=== PATIENT | male | born 1980 | race Hispanic/Latino ===

== ENCOUNTER 2020-01-23 21:15 | Emergency (ER) | payer SELFPAY ==
--- NOTE | 2020-01-23 23:12 | EDPHYS ---
Physician Documentation [facility] Name: Jerald Leiva Age: 39 yrs Sex: Male : 1980 Arrival Date: 01/23/2020 Time: 21:17 Bed 24 Private MD: ED Physician Cleveland Curry HPI: 01/22 21:45 This 39 yrs old Male presents to ER via Ambulatory with complaints of Flu cp Symptoms. 21:45 Onset: The symptoms/episode began/occurred yesterday. Associated signs and symptoms: cp Pertinent positives: fever, sore throat, chills, body aches, slight cough, Pertinent negatives: chest pain, diarrhea, vomiting. Severity of symptoms: in the emergency department the symptoms are unchanged despite home interventions. Historical: - Allergies: 21:22 No Known Allergies; aj1 - Home Meds: 21:22 None [Active]; aj1 - PMHx: 21:22 None; aj1 - PSHx: 21:22 None; aj1 - Immunization history:: Flu vaccine is not up to date. - Social history:: Smoking status: Patient/guardian denies using tobacco. ROS: 22:00 Constitutional: Positive for body aches, chills, Negative for fever, poor PO intake. cp 22:00 Eyes: Negative for injury, pain, redness, and discharge. cp 22:00 ENT: Positive for sore throat, Negative for drainage from ear(s), ear pain, sinus pain, difficulty swallowing, difficulty handling secretions, hoarseness. 22:00 Neck: Negative for stiffness. 22:00 Cardiovascular: Negative for chest pain. 22:00 Respiratory: Negative for shortness of breath, wheezing. 22:00 Abdomen/GI: Negative for abdominal pain, nausea, vomiting, and diarrhea. 22:00 Skin: Negative for rash. 22:00 Neuro: Negative for altered mental status, headache, weakness. 22:00 All other systems are negative. Exam: 22:05 Constitutional: The patient appears in no acute distress, alert, awake, cp non-diaphoretic, non-toxic, well developed, well nourished. 22:05 Head/Face: Normocephalic, atraumatic. cp 22:05 Eyes: Periorbital structures: appear normal, Conjunctiva: normal, no exudate, no injection, Lids and lashes: appear normal, bilaterally. 22:05 ENT: External ear(s): are unremarkable, Ear canal(s): are normal, clear, TM's: bulging, is not appreciated, bilaterally, dullness, bilaterally, erythema, is not appreciated, bilaterally, Nose: is normal, Mouth: Lips: moist, Oral mucosa: moist, Posterior pharynx: Airway: no evidence of obstruction, patent, Tonsils: no enlargement, no exudate, swelling, is not appreciated, erythema, that is mild, exudate, is not appreciated. 22:05 Neck: ROM/movement: Meningeal signs: are not present, nuchal rigidity, is not appreciated, Lymph nodes: no appreciated lymphadenopathy. 22:05 Chest/axilla: Inspection: normal, Palpation: is normal, no crepitus, no tenderness. 22:05 Cardiovascular: Rate: normal, Rhythm: regular. 22:05 Respiratory: the patient does not display signs of respiratory distress, Respirations: normal, no use of accessory muscles, no retractions, no splinting, no tachypnea, labored breathing, is not present, Breath sounds: decreased breath sounds, are not appreciated, stridor, is not appreciated, wheezing: is not appreciated. 22:05 Abdomen/GI: Inspection: abdomen appears normal, Palpation: abdomen is soft and non-tender, in all quadrants. 22:05 Skin: no rash present. Vital Signs: 21:19 BP 128 / 81; Pulse 98; Resp 18; Temp 99.6(O); Pulse Ox 100% on R/A; Weight 63.05 kg aj1 (R); Height 5 ft. 7 in. (170.18 cm) (R); Pain 0/10; 21:19 Body Mass Index 21.77 (63.05 kg, 170.18 cm) aj1 MDM: 21:23 Patient medically screened. [facility] 23:00 Differential diagnosis: bronchitis, flu, URI, strep throat. cp 23:11 Data reviewed: vital signs, nurses notes, lab test result(s), and as a result, I will cp discharge patient. 23:11 Antibiotic administration: Not indicated, the patient has a suspected viral illness. cp Counseling: I had a detailed discussion with the patient and/or guardian regarding: the historical points, exam findings, and any diagnostic results supporting the discharge/admit diagnosis, lab results, to return to the emergency department if symptoms worsen or persist or if there are any questions or concerns that arise at home. 01/22 21:35 Order name: Influenza Screen (a \T\ B); Complete Time: 23:08 cp 01/22 23:08 Interpretation: Reviewed. cp 01/22 21:35 Order name: Strep; Complete Time: 23:08 cp 01/22 23:09 Interpretation: Reviewed. cp Administered Medications: No medications were administered Disposition: 01/23 07:33 Co-signature as Attending Physician, Cleveland Curry MD I agree with the assessment and [facility] plan of care. Disposition: 01/23/20 23:12 Discharged to Home. Impression: Influenza due to unidentified influenza virus. - Condition is Stable. - Discharge Instructions: Influenza, Adult. - Prescriptions for Ibuprofen 800 mg Oral Tablet - take 1 tablet by ORAL route every 8 hours As needed take with food; 30 tablet. Tessalon Perles 100 mg Oral Capsule - take 2 capsule by ORAL route every 8 hours As needed; 20 capsule. Tamiflu 75 mg Oral Capsule - take 1 tablet by ORAL route every 12 hours for 5 days; 10 tablet. - Medication Reconciliation Form, Thank You Letter, Antibiotic Education, Prescription Opioid Use form. - Work release form (01/23/20 23:32). ls4 - Follow up: Private Physician; When: 2 - 3 days; Reason: Worsening of condition. - Problem is new. - Symptoms are unchanged. Signatures: Dispatcher [employer] EDAmina Mariee RN RN aj1 Cleveland Curry MD MD cha Page, Corey, PA PA cp Stewart, Lisa, RN RN ls4 Corrections: (The following items were deleted from the chart) 01/22 23:28 23:12 01/23/2020 23:12 Discharged to Home. Impression: Influenza due to unidentified ls4 influenza virus. Condition is Stable. Forms are Medication Reconciliation Form, Thank You Letter, Antibiotic Education, Prescription Opioid Use. Follow up: Private Physician; When: 2 - 3 days; Reason: Worsening of condition. Problem is new. Symptoms are unchanged. cp
--- NOTE | 2020-01-23 23:12 | ER ---
Nurse's Notes [facility] Name: Jerald Leiva Age: 39 yrs Sex: Male : 1980 Arrival Date: 01/23/2020 Time: 21:17 Bed 24 Private MD: Diagnosis: Influenza due to unidentified influenza virus Presentation: 01/22 21:19 Chief complaint: Patient states: Sore throat, chills, body aches since yesterday. aj1 Coronavirus screen: The patient has NOT traveled to a country currently being monitored by the CDC within the last 14 days. Ebola Screen: Patient denies travel to an Ebola-affected area in the 21 days before illness onset. Initial Sepsis Screen: Does the patient meet any 2 criteria? HR > 90 bpm. No. Patient's initial sepsis screen is negative. Does the patient have a suspected source of infection? Yes: Other: fever, body aches. Risk Assessment: Do you want to hurt yourself or someone else? Patient reports no desire to harm self or others. 21:19 Method Of Arrival: Ambulatory aj 21:19 Acuity: ISABEL 4 aj1 Triage Assessment: 21:22 General: Appears in no apparent distress. comfortable, Behavior is calm, cooperative, aj1 appropriate for age. Pain: Denies pain. EENT: Reports sore throat. Neuro: Level of Consciousness is awake, alert, obeys commands, Oriented to person, place, time, situation. Cardiovascular: Patient's skin is warm and dry. Respiratory: Airway is patent Respiratory effort is even, unlabored, Respiratory pattern is regular, symmetrical. Historical: - Allergies: 21:22 No Known Allergies; aj1 - Home Meds: 21:22 None [Active]; aj1 - PMHx: 21:22 None; aj1 - PSHx: 21:22 None; aj1 - Immunization history:: Flu vaccine is not up to date. - Social history:: Smoking status: Patient/guardian denies using tobacco. Screenin:37 Abuse screen: Denies threats or abuse. Denies injuries from another. Nutritional ls4 screening: No deficits noted. Tuberculosis screening: No symptoms or risk factors identified. Fall Risk None identified. Vital Signs: 21:19 BP 128 / 81; Pulse 98; Resp 18; Temp 99.6(O); Pulse Ox 100% on R/A; Weight 63.05 kg [facility] (R); Height 5 ft. 7 in. (170.18 cm) (R); Pain 0/10; 21:19 Body Mass Index 21.77 (63.05 kg, 170.18 cm) [facility] ED Course: 21:17 Patient arrived in ED. jg7 21:22 Triage completed. 1 21:22 Arm band placed on Patient placed in an exam room. 1 21:22 Patient has correct armband on for positive identification. Bed in low position. Call ls4 light in reach. Side rails up X 1. 21:22 front desk monitor on. Pulse ox on. NIBP on. ls4 21:25 Cleveland Ramirez PA is PHCP. cp 21:25 Cleveland Curry MD is Attending Physician. cp 21:41 Georgiana Hook, RN is Primary Nurse. ls4 Administered Medications: No medications were administered Outcome: 23:12 Discharge ordered by MD. cp 23:28 Patient left the ED. ls4 Signatures: Amina Hall, RN RN [facility] Cleveland Ramirez PA PA cp Georgiana Hook, RN RN ls4 Theresa Hall [facility]
[2020-01-23 23:32] VITALS: BP 128/81; TEMP 99.6; O2SAT 100
== END 2020-01-23 23:28 | disposition home or self-care (01) ==
LOC: ER 21:15
DX: J11.89 Influenza due to unidentified influenza virus with other manifestations (principal)
CPT/HCPCS: 87070; 87081; 87804; 99284

== ENCOUNTER 2020-01-28 08:45 | Emergency (ER) | payer SELFPAY ==
--- NOTE | 2020-01-28 09:56 | EDPHYS ---
Physician Documentation [facility] Name: Jerald Leiva Age: 39 yrs Sex: Male : 1980 Arrival Date: 01/28/2020 Time: 08:47 Bed 14 Private MD: ED Physician Kris Kellogg HPI: 01/27 09:07 This 39 yrs old Male presents to ER via Unassigned with complaints of Cough, rn Sore Throat, Runny Nose. 09:07 The patient or guardian reports cough, sore throat. Onset: The symptoms/episode rn began/occurred 6 day(s) ago. Severity of symptoms: At their worst the symptoms were mild, in the emergency department the symptoms are unchanged. Modifying factors: The symptoms are alleviated by nothing, the symptoms are aggravated by nothing. The patient has experienced similar episodes in the past. Reports seen here 5 days ago, told had viral infection, reports cough is better but still has sore throat. Now daughter with similar symptoms. . Historical: - Allergies: 09:13 No Known Allergies; iw - Home Meds: 09:13 None [Active]; iw - PMHx: 09:13 None; iw - PSHx: 09:13 None; iw - Immunization history:: Adult Immunizations not up to date. - Social history:: Smoking status: Patient denies any tobacco usage or history of. - Family history:: not pertinent. - Hospitalizations: : No recent hospitalization is reported. ROS: 09:07 Constitutional: Negative for fever, chills, and weight loss, Eyes: Negative for injury, rn pain, redness, and discharge, ENT: + cough and sore throat Neck: Negative for injury, pain, and swelling, Cardiovascular: Negative for chest pain, palpitations, and edema, Respiratory: Negative for shortness of breath, wheezing, and pleuritic chest pain, Abdomen/GI: Negative for abdominal pain, nausea, vomiting, diarrhea, and constipation, MS/Extremity: Negative for injury and deformity, Skin: Negative for injury, rash, and discoloration, Neuro: Negative for headache, weakness, numbness, tingling, and seizure. Exam: 09:07 Constitutional: This is a well developed, well nourished patient who is awake, alert, rn and in no acute distress. Ambulatory to room without distress, drinking coffee Head/Face: Normocephalic, atraumatic. ENT: mild pharyngeal erythema without exudate or stridor Neck: Trachea midline, no thyromegaly or masses palpated, and no cervical lymphadenopathy. Supple, full range of motion without nuchal rigidity, or vertebral point tenderness. No Meningismus. Respiratory: Speaking full sentences. No increased work of breathing, no retractions or nasal flaring. Vital Signs: 09:11 BP 124 / 72; Pulse 66; Resp 16 S; Temp 98.0; Pulse Ox 99% on R/A; Weight 62.6 kg; iw Height 5 ft. 6 in. (167.64 cm); 09:11 Body Mass Index 22.27 (62.60 kg, 167.64 cm) iw MDM: 08:54 Patient medically screened. rn 09:54 Differential Diagnosis: Influenza Upper Respiratory Infection Viral Syndrome. Data rn reviewed: vital signs, nurses notes, lab test result(s), and as a result, I will discharge patient. Counseling: I had a detailed discussion with the patient and/or guardian regarding: the historical points, exam findings, and any diagnostic results supporting the discharge/admit diagnosis, lab results, the need for outpatient follow up, to return to the emergency department if symptoms worsen or persist or if there are any questions or concerns that arise at home. Special discussion: I discussed with the patient/guardian in detail that at this point there is no indication for admission to the hospital. It is understood, however, that if the symptoms persist or worsen the patient needs to return immediately for re-evaluation. 01/27 09:07 Order name: Flu; Complete Time: 09:52 rn Administered Medications: No medications were administered Disposition: 01/28/20 09:55 Discharged to Home. Impression: Acute upper respiratory infection, unspecified. - Condition is Stable. - Discharge Instructions: Upper Respiratory Infection, Adult, Viral Respiratory Infection. - Medication Reconciliation Form, Thank You Letter, Antibiotic Education, Prescription Opioid Use form. - Follow up: Private Physician; When: As needed; Reason: Recheck today's complaints, Re-evaluation by your physician. - Problem is an ongoing problem. - Symptoms have improved. Signatures: Dispatcher [employer] Jarrett Knowles RN RN em Williams, Irene, RN RN iw Kris Kellogg MD MD overnight houseperson: (The following items were deleted from the chart) 10:27 09:55 01/28/2020 09:55 Discharged to Home. Impression: Acute upper respiratory em infection, unspecified. Condition is Stable. Forms are Medication Reconciliation Form, Thank You Letter, Antibiotic Education, Prescription Opioid Use. Follow up: Private Physician; When: As needed; Reason: Recheck today's complaints, Re-evaluation by your physician. Problem is an ongoing problem. Symptoms have improved. rn
--- NOTE | 2020-01-28 09:56 | ER ---
Nurse's Notes [facility] Name: Jerald Leiva Age: 39 yrs Sex: Male : 1980 Arrival Date: 01/28/2020 Time: 08:47 Bed 14 Private MD: Diagnosis: Acute upper respiratory infection, unspecified Presentation: 01/27 09:11 Chief complaint: Patient states: was seen here on Tuesday and had flu/strep swab iw negative , still isn't better. Coronavirus screen: The patient has NOT traveled to a country currently being monitored by the [facility] within the last 14 days. Proceed with normal triage procedures. The patient has NOT had contact with any known and/or suspected case of coronavirus. Proceed with normal triage procedures. Ebola Screen: Patient negative for fever greater than or equal to 101.5 degrees Fahrenheit, and additional compatible Ebola Virus Disease symptoms Patient denies exposure to infectious person. Patient denies travel to an Ebola-affected area in the 21 days before illness onset. No symptoms or risks identified at this time. Initial Sepsis Screen: Does the patient meet any 2 criteria? No. Patient's initial sepsis screen is negative. Does the patient have a suspected source of infection? No. Patient's initial sepsis screen is negative. Risk Assessment: Do you want to hurt yourself or someone else? Patient reports no desire to harm self or others. 09:11 Method Of Arrival: Ambulatory iw 09:11 Acuity: ISABEL 4 iw Historical: - Allergies: 09:13 No Known Allergies; iw - Home Meds: 09:13 None [Active]; iw - PMHx: 09:13 None; iw - PSHx: 09:13 None; iw - Immunization history:: Adult Immunizations not up to date. - Social history:: Smoking status: Patient denies any tobacco usage or history of. - Family history:: not pertinent. - Hospitalizations: : No recent hospitalization is reported. Screenin:14 Abuse screen: Denies threats or abuse. Nutritional screening: No deficits noted. em Tuberculosis screening: No symptoms or risk factors identified. Fall Risk None identified. Assessment: 09:20 General: Appears in no apparent distress. comfortable, Behavior is calm, cooperative, em Reports feeling ill for > 3 days, Denies fever. Pain: Denies pain. Neuro: Level of Consciousness is awake, alert, obeys commands, Oriented to person, place, time, situation, Appropriate for age. Cardiovascular: Capillary refill < 3 seconds Patient's skin is warm and dry. Respiratory: Reports cough that is non-productive, Airway is patent Respiratory effort is even, unlabored, Respiratory pattern is regular, symmetrical, Breath sounds are clear bilaterally. Onset: The symptoms/episode began/occurred 6 days ago, Denies shortness of breath. GI: Patient currently denies nausea, vomiting. EENT: Nares are clear Oral mucosa is moist. Throat is clear is pink. Derm: Skin is intact, is healthy with good turgor, Skin is pink, warm \T\ dry. Musculoskeletal: Capillary refill < 3 seconds, Range of motion: intact in all extremities. Vital Signs: 09:11 BP 124 / 72; Pulse 66; Resp 16 S; Temp 98.0; Pulse Ox 99% on R/A; Weight 62.6 kg; iw Height 5 ft. 6 in. (167.64 cm); 09:11 Body Mass Index 22.27 (62.60 kg, 167.64 cm) ED Course: 08:47 Patient arrived in ED. ag5 08:54 Kris Kellogg MD is Attending Physician. rn 09:05 Jarrett Painter RN is Primary Nurse. em 09:13 Triage completed. iw 09:14 Arm band placed on. iw 09:14 Patient has correct armband on for positive identification. em 10:24 No provider procedures requiring assistance completed. Patient did not have IV access em during this emergency room visit. Administered Medications: No medications were administered Outcome: 09:55 Discharge ordered by . rn 10:24 Discharged to home ambulatory, with family. em 10:24 Condition: good 10:24 Discharge instructions given to patient, Instructed on discharge instructions, follow up and referral plans. Demonstrated understanding of instructions, follow-up care. 10:27 Patient left the ED. em Signatures: Jarrett Painter RN RN em Williams, Irene, RN RN Kris Kellogg MD MD rn Gaskin, Ajare ag5
[2020-01-28 10:31] VITALS: BP 124/72; TEMP 98; O2SAT 99
== END 2020-01-28 10:27 | disposition home or self-care (01) ==
LOC: ER 08:45
DX: J06.9 Acute upper respiratory infection, unspecified (principal)
CPT/HCPCS: 87804; 99281

== ENCOUNTER 2021-06-28 13:48 | Emergency (ER) | payer SELFPAY ==
[2021-06-28] MEDS ORDERED: ACETAMINOPHEN 500 MG TAB ONE (14:49)
[2021-06-28] MEDS ORDERED: ONDANSETRON 4 MG (ODT) TAB ONE (14:52)
[2021-06-28 15:51] LABS: SARS-COV-2 RT PCR POSITIVE (NEGATIVE)
--- NOTE | 2021-06-28 16:10 | RAD REPORT ---
EXAM DESCRIPTION: RAD - Chest Single View - 06/28/2021 3:40 pm CLINICAL HISTORY: SOB COMPARISON: No comparisons FINDINGS: No evidence of edema or pneumonia. The heart size is within normal limits.No acute osseous abnormality. No significant pleural effusions or pneumothorax. IMPRESSION: No acute cardiopulmonary disease.
--- NOTE | 2021-06-28 17:13 | ER ---
Nurse's Notes [facility] Name: Jerald Leiva Age: 41 yrs Sex: Male : 1980 Arrival Date: 06/28/2021 Time: 13:50 Bed 3 Private MD: Diagnosis: Coronavirus infection, unspecified Presentation: 06/28 14:21 Chief complaint: Patient states: MARIN, sore throat, body aches and fever that began ss Tuesday. Coronavirus screen: cough unrelated to allergies, muscle pain, Client presents with at least one sign or symptom that may indicate coronavirus-19. Standard/surgical mask placed on the client. Provider contacted for isolation considerations. Ebola Screen: Patient denies exposure to infectious person. Patient denies travel to an Ebola-affected area in the 21 days before illness onset. Initial Sepsis Screen: Does the patient meet any 2 criteria? No. Patient's initial sepsis screen is negative. Does the patient have a suspected source of infection? No. Patient's initial sepsis screen is negative. Risk Assessment: Do you want to hurt yourself or someone else? Patient reports no desire to harm self or others. Note Pt's is at home with COVID. Onset of symptoms was June 26, 2021. 14:21 Method Of Arrival: Ambulatory ss 14:21 Acuity: ISABEL 4 ss Historical: - Allergies: 14:23 No Known Allergies; ss - Home Meds: 14:23 None [Active]; ss - PMHx: 14:23 None; ss - PSHx: 14:23 None; ss - Immunization history:: Adult Immunizations up to date. - Social history:: Smoking status: Patient denies any tobacco usage or history of. Screenin:58 Abuse screen: Denies threats or abuse. Denies injuries from another. Nutritional hb screening: No deficits noted. Tuberculosis screening: No symptoms or risk factors identified. Fall Risk None identified. Assessment: 16:58 General: Appears in no apparent distress. Behavior is calm, cooperative. Pain: Pain hb currently is 3 out of 10 on a pain scale. Neuro: Level of Consciousness is awake, alert, obeys commands, Oriented to person, place, time, situation. Cardiovascular: Patient's skin is warm and dry. Respiratory: Respiratory effort is even, unlabored, Respiratory pattern is regular, symmetrical. GI: No signs and/or symptoms were reported involving the gastrointestinal system. : No signs and/or symptoms were reported regarding the genitourinary system. EENT: No signs and/or symptoms were reported regarding the EENT system. Derm: Skin is pink, warm \T\ dry. Musculoskeletal: Reports body aches, headache. 17:23 Reassessment: Patient appears in no apparent distress at this time. Patient and/or jd3 family updated on plan of care and expected duration. Pain level reassessed. Patient is alert, oriented x 3, equal unlabored respirations, skin warm/dry/pink. Patient states feeling better. Vital Signs: 14:21 BP 98 / 69; Pulse 96; Resp 20; Temp 101.3(TE); Pulse Ox 96% on R/A; Weight 63.05 kg; ss Height 5 ft. 7 in. (170.18 cm); Pain 9/10; 16:58 BP 113 / 67; Pulse 79; Resp 17; Temp 99(TE); Pulse Ox 97% on R/A; Pain 3/10; hb 14:21 Body Mass Index 21.77 (63.05 kg, 170.18 cm) ED Course: 13:50 Patient arrived in ED. ds1 14:23 Triage completed. ss 14:23 Arm band placed on right wrist. ss 14:29 Logan Rosas NP is PHCP. pm1 14:29 Ryan Mckeon MD is Attending Physician. pm1 15:40 Chest Single View XRAY In Process Unspecified. EDMS 16:57 Jyoti Martinez, DELISA is Primary Nurse. hb 16:58 Patient has correct armband on for positive identification. Bed in low position. Call light in reach. 17:07 COVID swab sent to lab. Flu and/or RSV swab sent to lab. Strep swab sent to lab. mh5 17:23 No provider procedures requiring assistance completed. Patient did not have IV access jd3 during this emergency room visit. Administered Medications: 14:31 Drug: Tylenol 1000 mg Route: PO; ss 15:30 Follow up: Response: No adverse reaction jd3 14:33 Drug: Zofran (Ondansetron) 4 mg Route: PO; ss 15:30 Follow up: Response: No adverse reaction jd3 Outcome: 17:12 Discharge ordered by . pm1 17:23 Discharged to home ambulatory, with family. jd3 17:23 Condition: stable 17:23 Discharge instructions given to patient, Instructed on discharge instructions, follow up and referral plans. medication usage, Demonstrated understanding of instructions, follow-up care, medications, Prescriptions given X 1. 17:24 Patient left the ED. jd3 Signatures: Dispatcher [employer] EDMT GaryKate ds1 Darshana Lovelace RN RN ss Logan Rosas, AUTOMOBILE CONTRACT CLERK [employer]OM[employer]BILE CONTRACT CLERK pm1 Jyoti Martinez RN RN hb Martinez, [facility] Osmin Mejia RN RN jd3
--- NOTE | 2021-06-28 17:13 | EDPHYS ---
Physician Documentation [facility] Name: Jerald Leiva Age: 41 yrs Sex: Male : 1980 Arrival Date: 06/28/2021 Time: 13:50 Bed 3 Private MD: ED Physician Ryan Mckeon HPI: 06/28 14:40 This 41 yrs old Male presents to ER via Ambulatory with complaints of Fever, pm1 Body Aches. 14:40 The patient reports fever, not measured (subjective). Onset: The symptoms/episode pm1 began/occurred 2 day(s) ago. Modifying factors: The patient has had contact with sick spouse, Covid positive. Associated signs and symptoms: Pertinent positives: decreased appetite, Occasional cough, shortness of breath, sore throat and body aches. Severity of symptoms: in the emergency department the symptoms are worse. The patient has not experienced similar symptoms in the past. The patient has not recently seen a physician. . Historical: - Allergies: 14:23 No Known Allergies; ss - Home Meds: 14:23 None [Active]; ss - PMHx: 14:23 None; ss - PSHx: 14:23 None; ss - Immunization history:: Adult Immunizations up to date. - Social history:: Smoking status: Patient denies any tobacco usage or history of. ROS: 14:40 Constitutional: Positive for body aches, fever, decreased PO intake. pm1 14:40 Back: Negative for injury and pain, MS/Extremity: Negative for injury and deformity, pm1 Skin: Negative for injury, rash, and discoloration, Neuro: Negative for headache, weakness, numbness, tingling, and seizure. 14:40 Neck: Negative for injury, pain, and swelling, Cardiovascular: Negative for chest pain, palpitations, and edema. 14:40 ENT: Positive for sore throat, Negative for Change in smell and taste. 14:40 Respiratory: Positive for cough, shortness of breath. 14:40 Abdomen/GI: Positive for nausea, vomiting, diarrhea, Negative for abdominal pain. 14:40 All other systems are negative. Exam: 14:40 Head/Face: Normocephalic, atraumatic. pm1 14:40 Back: No spinal tenderness. No costovertebral tenderness. Full range of motion. Skin: Warm, dry with normal turgor. Normal color with no rashes, no lesions, and no evidence of cellulitis. MS/ Extremity: Pulses equal, no cyanosis. Neurovascular intact. Full, normal range of motion. 14:40 Constitutional: The patient appears in no acute distress, alert, awake, comfortable, non-diaphoretic, non-toxic, well developed, well hydrated, well groomed, well nourished, febrile. 14:40 ENT: Posterior pharynx: Tonsils: bilaterally enlarged, with erythema, no exudate, no ulcerations, erythema, that is mild. 14:40 Cardiovascular: Exam negative for acute changes, Rate: normal, Rhythm: regular, Pulses: no pulse deficits are appreciated, Heart sounds: normal. 14:40 Respiratory: Exam negative for acute changes, respiratory distress, shortness of breath, Breath sounds: are clear throughout. 14:40 Abdomen/GI: Exam negative for acute changes, Inspection: abdomen appears normal, Palpation: abdomen is soft and non-tender, in all quadrants. 14:40 Neuro: Exam negative for acute changes, Orientation: is normal, Mentation: is normal, Motor: is normal, moves all fours. Vital Signs: 14:21 BP 98 / 69; Pulse 96; Resp 20; Temp 101.3(TE); Pulse Ox 96% on R/A; Weight 63.05 kg; ss Height 5 ft. 7 in. (170.18 cm); Pain 9/10; 16:58 BP 113 / 67; Pulse 79; Resp 17; Temp 99(TE); Pulse Ox 97% on R/A; Pain 3/10; hb 14:21 Body Mass Index 21.77 (63.05 kg, 170.18 cm) MDM: 14:44 Patient medically screened. pm1 15:07 Data reviewed: vital signs. Data interpreted: Pulse oximetry: on room air. pm1 16:57 Counseling: I had a detailed discussion with the patient and/or guardian regarding: the pm1 historical points, exam findings, and any diagnostic results supporting the discharge/admit diagnosis, lab results, radiology results. 06/28 14:24 Order name: Strep ss 06/28 14:29 Order name: Chest Single View XRAY; Complete Time: 16:50 pm1 06/28 15:18 Order name: Throat Culture EDMS 06/28 15:51 Order name: COVID-19/FLU A+B; Complete Time: 15:59 EDMS Administered Medications: 14:31 Drug: Tylenol 1000 mg Route: PO; ss 15:30 Follow up: Response: No adverse reaction jd3 14:33 Drug: Zofran (Ondansetron) 4 mg Route: PO; ss 15:30 Follow up: Response: No adverse reaction jd3 Disposition: 18:34 Co-signature as Attending Physician, Ryan Mckeon MD I agree with the assessment and tw4 plan of care. Disposition Summary: 06/28/21 17:12 Discharge Ordered Location: Home pm1 Problem: new pm1 Symptoms: have improved pm1 Condition: Stable pm1 Diagnosis - Coronavirus infection, unspecified pm1 Followup: pm1 - With: Emergency Department - When: As needed - Reason: Worsening of condition Followup: pm1 - With: Private Physician - When: 2 - 3 days - Reason: Recheck today's complaints, Continuance of care, Re-evaluation by your physician Discharge Instructions: - Discharge Summary Sheet pm1 - COVID-19 pm1 Forms: - Medication Reconciliation Form pm1 - Thank You Letter pm1 - Antibiotic Education pm1 - Prescription Opioid Use pm1 - Work release form jd3 Prescriptions: - ondansetron 4 mg Oral tablet,disintegrating - place 1 tablet by TRANSLINGUAL route every 8 hours As needed; 15 tablet; pm1 Refills: 0, Product Selection Permitted Signatures: Dispatcher [employer] EDMS Darshana Lovelace RN RN ss Logan Rosas, OUTSIDE DELIVERER OUTSIDE DELIVERER pm1 Ryan Mckeon MD MD tw4 Osmin Mejia RN jd3 Corrections: (The following items were deleted from the chart) 14:51 14:24 CORONAVIRUS+MR.LAB.BRZ ordered. EDMS EDMS 15:18 14:25 Influenza Screen (A \T\ B)+BA.LAB.BRZ ordered. EDMS EDMS
[2021-06-28 17:32] VITALS: BP 113/67; TEMP 99; O2SAT 97
== END 2021-06-28 17:24 | disposition home or self-care (01) ==
LOC: ER 13:48
DX: U07.1 COVID-19 (principal)
CPT/HCPCS: 0240U; 71045; 87070; 87081; 99284

== ENCOUNTER 2022-07-04 21:52 | Emergency (ER) | payer SELFPAY ==
[2022-07-04] MEDS ORDERED: ACETAMINOPHEN 500 MG TAB ONE (22:57)
[2022-07-04] MEDS ORDERED: ONDANSETRON 4 MG (ODT) TAB ONE (23:04)
--- NOTE | 2022-07-05 00:43 | EDPHYS ---
Physician Documentation [facility] Name: Jerald Leiva Age: 42 yrs Sex: Male : 1980 Arrival Date: 07/04/2022 Time: 21:57 Bed Waiting Private MD: JENNIFER Physician Cleveland Curry HPI: 07/05 00:28 This 42 yrs old Male presents to ER via Ambulatory with complaints of Vomiting.kb 00:28 The patient presents with sore throat. The patient describes throat pain as constant. kb Onset: The symptoms/episode began/occurred this morning. Severity of symptoms: At their worst the symptoms were moderate, in the emergency department the symptoms are unchanged. Modifying factors: The symptoms are alleviated by nothing, the symptoms are aggravated by swallowing, Patient's oral intake status: good. Associated signs and symptoms: Pertinent positives: chills, fever, headache, Sore throat vomiting. The patient has not experienced similar symptoms in the past. The patient has not recently seen a physician. Patient has been having chills, headache, sore throat, fever and vomiting that started this morning. Denies cough or congestion. Denies abdominal pain.. Historical: - Allergies: 07/04 22:43 No Known Allergies; bm7 - Home Meds: 22:43 None [Active]; bm7 - PSHx: 22:43 Unable to Obtain; bm7 - Immunization history:: Adult Immunizations up to date, Client reports having NOT received the Covid vaccine. - Social history:: Smoking status: Patient reports the use of cigarette tobacco products, denies chronic smoking, but will smoke occasionally. ROS: 07/05 00:27 Respiratory: Negative for shortness of breath, cough, wheezing, and pleuritic chest kb pain. Constitutional: Positive for chills, malaise. ENT: Positive for sore throat. Abdomen/GI: Positive for nausea and vomiting, Negative for abdominal pain. Neuro: Positive for headache. All other systems are negative. Exam: 00:27 Constitutional: This is a well developed, well nourished patient who is awake, alert, kb and in no acute distress. Head/Face: Normocephalic, atraumatic. ENT: Moist Mucous membranes Cardiovascular: Regular rate and rhythm with a normal S1 and S2. No gallops, murmurs, or rubs. No pulse deficits. Respiratory: Respirations even and unlabored. No increased work of breathing. Talking in full sentences Abdomen/GI: Soft, non-tender. No distention Skin: Warm, dry with normal turgor. Normal color. MS/ Extremity: Pulses equal, no cyanosis. Neurovascular intact. Full, normal range of motion. Neuro: Awake and alert, GCS 15, oriented to person, place, time, and situation. Moves all extremities. Normal gait. Psych: Awake, alert, with orientation to person, place and time. Behavior, mood, and affect are within normal limits. 00:27 ENT: Posterior pharynx: Airway: normal, no evidence of obstruction, swelling, that is mild, erythema, that is moderate. Vital Signs: 07/04 22:41 BP 122 / 76; Pulse 109; Resp 18; Temp 102.5(TE); Pulse Ox 100% on R/A; Weight 58.97 kg bm7 (R); Height 5 ft. 7 in. (170.18 cm); Pain 10/10; 07/05 00:40 BP 101 / 67; Pulse 91; Resp 18; Temp 100.3(O); Pulse Ox 98% ; vc1 07/04 22:41 Body Mass Index 20.36 (58.97 kg, 170.18 cm) bm7 MDM: 07/04 22:56 Patient medically screened. kb 07/05 00:28 Data reviewed: vital signs, nurses notes. Data interpreted: Pulse oximetry: on room air kb is 100 %. Interpretation: normal. Counseling: I had a detailed discussion with the patient and/or guardian regarding: the historical points, exam findings, and any diagnostic results supporting the discharge/admit diagnosis, lab results, the need for outpatient follow up, a family practitioner, to return to the emergency department if symptoms worsen or persist or if there are any questions or concerns that arise at home. 07/04 22:45 Order name: Flu; Complete Time: 00:03 7 07/04 22:47 Order name: COVID-19 SARS RT PCR (Document "Date of Onset" if Symptomatic); Complete kb Time: 00:09 07/04 22:50 Order name: Strep; Complete Time: 00:03 [facility] 07/04 23:47 Order name: Throat Culture EDMI 07/05 00:11 Order name: Vital Signs kb 07/05 00:23 Order name: PO challenge; Complete Time: 00:38 kb Administered Medications: 07/04 22:49 Drug: Tylenol 1000 mg Route: PO; bm7 22:56 Drug: Zofran (Ondansetron) 4 mg Route: PO; bm7 Disposition Summary: 07/05/22 00:42 Discharge Ordered Location: Home kb Condition: Stable kb Diagnosis - Acute pharyngitis, unspecified kb Followup: kb - With: Emergency Department - When: As needed - Reason: Worsening of condition Followup: kb - With: Private Physician - When: 2 - 3 days - Reason: Recheck today's complaints, Continuance of care, Re-evaluation by your physician Discharge Instructions: - Discharge Summary Sheet kb - Pharyngitis, [id number] kb Forms: - Medication Reconciliation Form kb - Thank You Letter kb - Antibiotic Education kb - Prescription Opioid Use kb Signatures: Dispatcher [employer] Lauren Coffey, NESHA PAZ-Ebony Skinner, RN RN bm7
--- NOTE | 2022-07-05 00:43 | ER ---
Nurse's Notes [facility] Name: Jerald Leiva Age: 42 yrs Sex: Male : 1980 Arrival Date: 07/04/2022 Time: 21:57 Bed Waiting Private MD: Diagnosis: Acute pharyngitis, unspecified Presentation: 07/04 22:42 Chief complaint: Patient states: I have been having chills, headache, sore throat, bm7 fever, and vomiting since this morning. I did a home covid test and it was negative. Coronavirus screen: Client presents with at least one sign or symptom that may indicate coronavirus-19. Standard/surgical mask placed on the client. Ebola Screen: No symptoms or risks identified at this time. Initial Sepsis Screen: Does the patient meet any 2 criteria? Temp <36.0*C (96.8*F)) or > 38.3*C (100.9*F). Does the patient have a suspected source of infection? No. Patient's initial sepsis screen is negative. Risk Assessment: Do you want to hurt yourself or someone else? Patient reports no desire to harm self or others. Onset of symptoms was July 04, 2022. Care prior to arrival: Medication(s) given: Motrin, \T\1500. 22:42 Method Of Arrival: Ambulatory [facility] 22:42 Acuity: ISABEL 3 bm7 Triage Assessment: 22:43 General: Appears in no apparent distress. uncomfortable, Behavior is anxious. Pain: bm7 Complains of pain in forehead Pain does not radiate. EENT: Reports difficulty swallowing due to sore throat. Neuro: No deficits noted. Cardiovascular: No deficits noted. Chest pain is denied. Respiratory: Denies cough, shortness of breath. GI: Reports nausea, vomiting, Patient currently denies diarrhea. : No deficits noted. No signs and/or symptoms were reported regarding the genitourinary system. Derm: No deficits noted. No signs and/or symptoms reported regarding the dermatologic system. Musculoskeletal: No deficits noted. No signs and/or symptoms reported regarding the musculoskeletal system. Historical: - Allergies: 22:43 No Known Allergies; bm7 - Home Meds: 22:43 None [Active]; bm7 - PSHx: 22:43 Unable to Obtain; bm7 - Immunization history:: Adult Immunizations up to date, Client reports having NOT received the Covid vaccine. - Social history:: Smoking status: Patient reports the use of cigarette tobacco products, denies chronic smoking, but will smoke occasionally. Screenin/22 00:47 Abuse screen: Denies threats or abuse. Nutritional screening: No deficits noted. vc1 Tuberculosis screening: No symptoms or risk factors identified. Fall Risk None identified. Assessment: 00:40 Reassessment: Patient and/or family updated on plan of care and expected duration. Pain vc1 level reassessed. Patient is alert, oriented x 3, equal unlabored respirations, skin warm/dry/pink. Patient states feeling better. Patient states symptoms have improved. Vital Signs: 07/04 22:41 BP 122 / 76; Pulse 109; Resp 18; Temp 102.5(TE); Pulse Ox 100% on R/A; Weight 58.97 kg bm7 (R); Height 5 ft. 7 in. (170.18 cm); Pain 10/10; 07/05 00:40 BP 101 / 67; Pulse 91; Resp 18; Temp 100.3(O); Pulse Ox 98% ; vc1 07/04 22:41 Body Mass Index 20.36 (58.97 kg, 170.18 cm) bm7 ED Course: 07/04 21:57 Patient arrived in ED. bp1 22:41 Arm band placed on right wrist. bm7 22:43 Triage completed. bm7 22:47 Lauren Dyson FNP-C is [facility]. kb 22:47 Cleveland Curry MD is Attending Physician. kb 22:50 COVID swab sent to lab. Flu and/or RSV swab sent to lab. Strep swab sent to lab. bm7 07/05 00:48 No provider procedures requiring assistance completed. Patient did not have IV access vc1 during this emergency room visit. Administered Medications: 07/04 22:49 Drug: Tylenol 1000 mg Route: PO; bm7 22:56 Drug: Zofran (Ondansetron) 4 mg Route: PO; bm7 Medication: 07/05 00:48 VIS not applicable for this client. vc1 Outcome: 00:42 Discharge ordered by . kb 00:48 Discharged to home ambulatory, with family. vc1 00:48 Condition: good 00:48 Discharge instructions given to patient, family, Instructed on discharge instructions, follow up and referral plans. Demonstrated understanding of instructions, follow-up care. 00:48 Patient left the ED. vc1 Signatures: Lauren Dyson FNP-C FNP-Ebony Hendrickson Brittany, RN RN bm7 Henrietta Childers RN RN vc1
[2022-07-05 04:17] VITALS: BP 101/67; TEMP 100.3; O2SAT 98
== END 2022-07-05 00:48 | disposition home or self-care (01) ==
LOC: ER 21:52
DX: J02.9 Acute pharyngitis, unspecified (principal); R11.2 Nausea with vomiting, unspecified; R51.9 Headache, unspecified; F17.210 Nicotine dependence, cigarettes, uncomplicated; Z20.822 Contact with and (suspected) exposure to COVID-19
CPT/HCPCS: 87070; 87081; 87804; 99283; Q0162; U0003

== ENCOUNTER 2024-09-12 23:54 | Emergency (ER) | payer OTHER ==
[2024-09-13] MEDS ORDERED: FENTANYL CITR 100 MCG/2 ML ONE (01:03)
[2024-09-13] MEDS ORDERED: ONDANSETRON 4 MG/2 ML VIAL ONE (01:03)
[2024-09-13] MEDS ORDERED: NA CHLORIDE 0.9% 1,000 ML ONE (01:04)
[2024-09-13] MEDS ORDERED: dexAMETHasone 10 MG/ML VIAL ONE (01:12)
[2024-09-13 01:47] LABS: Absolute Basophils 0.1 K/uL (0-0.5); Absolute Eosinophils 0.1 K/uL (0-0.5); Absolute Lymphocytes (CBC) 1.4 K/uL (0.7-4.9); Absolute Monocytes 1.1 K/uL (0.1-1.3); Absolute Neutrophil 7.8 K/uL (1.8-8.0); Basophils % 0.8 % (0-1.3); Eosinophils % 1.4 % (0-4.4); Hematocrit 43.7 % (39.6-49.0); Hemoglobin 14.7 g/dL (13.6-17.9); Lymphocytes % 13.7 % (15.3-44.8); MCH 29.9 pg (27.0-35.0); MCHC 33.7 g/dL (32.0-36.0); MCV 88.9 fL (80-100); MPV 9.3 fL (7.6-11.3); Monocytes % 10.4 % (3.3-12.3); Neutrophils % 73.7 % (41.7-73.7); Platelets 303 thou/uL (152-406); RBC Red Blood Cell Count 4.92 M/uL (4.33-5.43); Red Cell Distribution Width 13.5 % (12.1-15.2)
[2024-09-13 01:51] LABS: Anion Gap 9.7 mEq/L (5.0-15.0); Monoscreen NEG (NEG); Potassium 3.7 mEq/L (3.5-5.1)
--- NOTE | 2024-09-13 02:46 | RAD REPORT ---
EXAMINATION: CT NECK WITH IV CONTRAST INDICATION: Male, 44 years old, r/o bell captain COMPARISON(S): None. TECHNIQUE: CT acquisition of the neck following the administration of IV contrast. Coronal and sagitt al reformatted images provided. This exam was performed according to departmental dose-optimization program which includes automated exposure control, adjustment of the mA and/or kV according to patien t size, and/or use of iterative reconstruction technique. FINDINGS: Aerodigestive tract: Ovoid 1.3 cm right peritonsillar fluid collection. Associated soft tissue inflam mation results in partial effacement of the right oropharynx. Small bilateral tonsilloliths. Soft tissues: No retropharyngeal fluid. Superficial soft tissues are unremarkable. Salivary glands: Parotid and submandibular glands are normal. Oral cavity: Unremarkable. Sinuses/Mastoids: No significant disease. Lymph nodes: Enlarged, probably reactive right level 3 lymph node. Thyroid: Unremarkable. Vascular: Unremarkable. Orbits: Unremarkable. Brain: Imaged intracranial structures are unremarkable by neck technique. Bones: No acute findings. Upper chest: No acute findings. IMPRESSION: Right 1.3 cm peritonsillar abscess. Probably reactive right cervical lymph node. No retropharyngeal f luid. Electronically signed by: Dc Jennings MD 09/13/2024 02:01 AM CDT RP Due to temporary technical issues with the PACS/[employer] reporting system, reports are being gavino d by the in-house radiologist without review as a courtesy to ensure prompt reporting the interpreting radiologist is fully responsible for the content of the report. Transcribed Date/Time: 09/13/2024 2:46 AM
--- NOTE | 2024-09-13 03:35 | ER ---
Nurse's Notes [facility] Name: Jerald Rick Age: 44 yrs Sex: Male : 1980 Arrival Date: 09/12/2024 Time: 23:54 Bed 7 Private MD: Diagnosis: Peritonsillar abscess Presentation: 09/13 00:14 Chief complaint: Patient states: throat pain radiating to right ear X2 days. seen in kl clinic today. strep swab negative and DC 'd with RX for azithromycin. pain has not gotten any better. 10mg toradol taken 1hr PAVING RAMMER. Coronavirus screen: Client denies travel out of the [place] in the last 14 days. At this time, the client does not indicate any symptoms associated with coronavirus-19. Ebola Screen: No symptoms or risks identified at this time. Initial Sepsis Screen: Does the patient meet any 2 criteria? No. Patient's initial sepsis screen is negative. Does the patient have a suspected source of infection? No. Patient's initial sepsis screen is negative. Risk Assessment: Do you want to hurt yourself or someone else? Patient reports no desire to harm self or others. Onset of symptoms was September 12, 2024. 00:14 Method Of Arrival: Ambulatory kl 00:14 Acuity: ISABEL 4 kl Triage Assessment: 00:18 General: Appears in no apparent distress. uncomfortable, Behavior is calm, cooperative. kl Pain: Complains of pain in right ear and throat. EENT: Reports difficulty swallowing pain when swallowing. Neuro: No deficits noted. Gaspar Agitation-Sedation Scale (RASS): 0 - Alert and Calm Level of Consciousness is awake, alert, obeys commands, Oriented to person, place, time, situation. Cardiovascular: No deficits noted. Denies chest pain, shortness of breath, Capillary refill < 3 seconds Clubbing of nail beds is absent JVD is absent Patient's skin is warm and dry. Respiratory: No deficits noted. Airway is patent Respiratory effort is even, unlabored, Respiratory pattern is regular, symmetrical. GI: No deficits noted. No signs and/or symptoms were reported involving the gastrointestinal system. : No deficits noted. No signs and/or symptoms were reported regarding the genitourinary system. Derm: No deficits noted. No signs and/or symptoms reported regarding the dermatologic system. Skin is intact, is healthy with good turgor, Skin is dry, Skin is normal, Skin temperature is warm. Musculoskeletal: No deficits noted. No signs and/or symptoms reported regarding the musculoskeletal system. Circulation, motion, and sensation intact. Range of motion: intact in all extremities. Historical: - Allergies: 00:18 No Known Allergies; kl - Home Meds: 00:18 azithromycin 1 gram Oral Packet [Active]; ketorolac 10 mg Oral tablet [Active]; kl - PMHx: 00:18 None; kl - PSHx: 00:18 None; kl - Immunization history:: Adult Immunizations up to date. - Infectious Disease History:: Denies. - Social history:: Smoking status: Patient denies any tobacco usage or history of. Patient uses alcohol, occasionally. Patient/guardian denies using street drugs. Screenin:30 [facility] ED Fall Risk Assessment (Adult) History of falling in the last 3 months, mt4 including since admission No falls in past 3 months (0 pts) Confusion or Disorientation No (0 pts) Intoxicated or Sedated No (0 pts) Impaired Gait No (0 pts) Mobility Assist Device Used No (0 pt) Altered Elimination No (0 pt) Score/Fall Risk Level 0 - 2 = Low Risk. Abuse screen: Denies injuries from another. Nutritional screening: Difficulty chewing/swallowing? Yes. Tuberculosis screening: No symptoms or risk factors identified. Exposure risk/Travel Screening: None identified. Assessment: :30 General: Appears in no apparent distress. comfortable, well groomed, Behavior is calm, mt4 cooperative, appropriate for age. Pain: Complains of pain in neck Pain currently is 10 out of 10 on a pain scale. Quality of pain is described as aching, pressure, sharp, throbbing. Neuro: Level of Consciousness is awake, alert, obeys commands, Oriented to person, place, time, situation, Appropriate for age Banana Expert are equal bilaterally Moves all extremities. Gait is steady, Speech is normal, Facial symmetry appears normal. Cardiovascular: Capillary refill < 3 seconds. Respiratory: Airway is patent Respiratory effort is even, unlabored, Respiratory pattern is regular. GI: No signs and/or symptoms were reported involving the gastrointestinal system. GI: No signs and/or symptoms were reported involving the gastrointestinal system. : No signs and/or symptoms were reported regarding the genitourinary system. EENT: Reports pain in right ear, chin and right jaw. Derm: No signs and/or symptoms reported regarding the dermatologic system. Musculoskeletal: No signs and/or symptoms reported regarding the musculoskeletal system. 03:45 Reassessment: Patient appears in no apparent distress at this time. Patient and/or bm8 family updated on plan of care and expected duration. Pain level reassessed. Patient is alert, oriented x 3, equal unlabored respirations, skin warm/dry/pink. Patient states feeling better. Patient states symptoms have improved. 03:45 Reassessment: pt insturcted to attend 0900 am appt with ENT, pt given printed 8 directions, address and phone number. Vital Signs: 00:14 BP 127 / 93; Pulse 69; Resp 17; Temp 98.7(O); Pulse Ox 100% on R/A; Weight 64.41 kg kl (R); Height 5 ft. 8 in. (R); 01:30 BP 123 / 81; Pulse 78; Resp 16 S; Temp 98.7(O); Pulse Ox 99% on R/A; Pain 10/10; mt4 02:45 BP 107 / 74; Pulse 58; Resp 16 S; Pulse Ox 98% on R/A; mt4 03:45 BP 118 / 74; Pulse 58; Resp 17; Temp 98.7; Pulse Ox 97% ; Pain 2/10; bm8 00:14 Body Mass Index 21.59 (64.41 kg, 172.72 cm) kl 01:30 Pain Scale: Adult mt4 03:45 Pain Scale: Adult bm8 Rudolph Coma Score: 01:30 Eye Response: spontaneous(4). Motor Response: obeys commands(6). Verbal Response: mt4 oriented(5). Total: 15. 03:45 Eye Response: spontaneous(4). Motor Response: obeys commands(6). Verbal Response: bm8 oriented(5). Total: 15. ED Course: 09/12 23:58 Patient arrived in ED. [id number] 09/13 00:18 Triage completed. kl 00:18 Arm band placed on right wrist. kl 00:30 Lauren Dyson FNP-C is [facility]. kb 00:30 Reynaldo Baron MD is Attending Physician. kb 00:57 Preet Hewitt, DELISA is Primary Nurse. bm8 01:30 No apparent distress. Resting quietly. Awaiting lab results. mt4 01:30 Patient has correct armband on for positive identification. Bed in low position. Call mt4 light in reach. Side rails up X 1. Provided Education on: labs and meds . Client placed on continuous cardiac and pulse oximetry monitoring. NIBP monitoring applied. Pulse ox on. Door closed. Lights dimmed. Warm blanket given. Pillow given. Verbal reassurance given. Assisted to bathroom. 01:30 No provider procedures requiring assistance completed. Inserted saline lock: 20 gauge mt4 in right antecubital area, using aseptic technique. Blood collected. Flushed with 10 mL NS. Patient maintains SpO2 saturation greater than 95% on room air. 01:48 CT Soft Tissue Neck W/contr In Process Unspecified. EDMS 03:33 Blank Jason MD is Referral Physician. bo1 03:45 IV discontinued, intact, bleeding controlled, No redness/swelling at site. Pressure bm8 dressing applied. Administered Medications: 01:29 Drug: Ondansetron IVP 4 mg IVP once; over 2 minutes Route: IVP; Site: right antecubital;mt4 01:50 Follow up: Response: No adverse reaction mt4 01:29 Drug: NS 0.9% IV 1000 ml IV at 1000 ml once; to be given as a bolus over 60 minutes mt4 Route: IV; Rate: 1000 ml; Site: right antecubital; 01:50 Follow up: Response: No adverse reaction mt4 02:37 Follow up: IV Status: Infusion continued; IV Intake: 1000ml mt4 01:30 Drug: Decadron - Dexamethasone IVP 10 mg IVP once Route: IVP; Site: right antecubital; mt4 01:50 Follow up: Response: No adverse reaction mt4 01:30 Drug: fentaNYL (PF) IVP 25 mcg IVP once Route: IVP; Site: right antecubital; mt4 01:50 Follow up: Response: No adverse reaction mt4 Medication: 01:30 VIS not applicable for this client. mt4 Intake: 02:37 IV: 1000ml; Total: 1000ml. mt4 Outcome: 03:34 Discharge ordered by . bo1 03:45 Discharged to home ambulatory, with family, bm8 03:45 Condition: stable 03:45 Discharge instructions given to patient, family, Instructed on discharge instructions, follow up and referral plans. no drinking with medication, no driving heavy equipment, medication usage, safety practices, Demonstrated understanding of instructions, follow-up care, medications, Prescriptions given X 2, 03:48 Patient left the ED. bm8 Signatures: Dispatcher [employer] EDMS Lauren Dyson, Georgina Jackson, RN RN Loli Arita [id number] Reynaldo Baron MD MD bo1 Preet Hewitt RN RN bm8 Idalia Pedroza RN RN mt4 Corrections: (The following items were deleted from the chart) 00:21 00:14 Chief complaint: Patient states: throat pain radiating to right ear X2 days. seen imelda in clinic today. strep swab negative and DC 'd with RX for azithromycin. pain has not gotten any better imelda
--- NOTE | 2024-09-13 03:35 | EDPHYS ---
Physician Documentation [facility] Name: Jerald Rick Age: 44 yrs Sex: Male : 1980 Arrival Date: 09/12/2024 Time: 23:54 Bed 7 Private MD: ED Physician Reynaldo Baron HPI: 09/13 00:56 This 44 yrs old Male presents to ER via Ambulatory with complaints of Jaw Pain.kb 00:56 Patient is a 44-year-old male who presents for right ear and throat pain that started kb yesterday. States he was seen in a clinic and tested for strep today which was negative but they started him on a Z-Scar and gave him a prescription for ketorolac for pain. States pain has only progressed and the medications are not helping.. Historical: - Allergies: 00:18 No Known Allergies; kl - Home Meds: 00:18 azithromycin 1 gram Oral Packet [Active]; ketorolac 10 mg Oral tablet [Active]; kl - PMHx: 00:18 None; kl - PSHx: 00:18 None; kl - Immunization history:: Adult Immunizations up to date. - Infectious Disease History:: Denies. - Social history:: Smoking status: Patient denies any tobacco usage or history of. Patient uses alcohol, occasionally. Patient/guardian denies using street drugs. ROS: 00:56 Constitutional: As per HPI kb Exam: 00:55 Constitutional: This is a well developed, well nourished patient who is awake, alert, kb and in no acute distress. Head/Face: Normocephalic, atraumatic. ENT: Moist Mucous membranes Cardiovascular: Regular rate Respiratory: Respirations even and unlabored. No increased work of breathing. Talking in full sentences Skin: Warm, dry with normal turgor. Normal color. MS/ Extremity: Pulses equal, no cyanosis. Neurovascular intact. Full, normal range of motion. Neuro: Awake and alert, GCS 15, oriented to person, place, time, and situation. 00:55 ENT: External ear(s): are unremarkable, Ear canal(s): are normal, TM's: are normal, Nose: is normal, Posterior pharynx: Tonsils: enlarged on the right, Uvula: Slight deviation to the left, swelling, that is mild, that is moderate, erythema, that is marked, exudate, is not appreciated, Vital Signs: 00:14 BP 127 / 93; Pulse 69; Resp 17; Temp 98.7(O); Pulse Ox 100% on R/A; Weight 64.41 kg kl (R); Height 5 ft. 8 in. (R); 01:30 BP 123 / 81; Pulse 78; Resp 16 S; Temp 98.7(O); Pulse Ox 99% on R/A; Pain 10/10; mt4 02:45 BP 107 / 74; Pulse 58; Resp 16 S; Pulse Ox 98% on R/A; mt4 03:45 BP 118 / 74; Pulse 58; Resp 17; Temp 98.7; Pulse Ox 97% ; Pain 2/10; bm8 00:14 Body Mass Index 21.59 (64.41 kg, 172.72 cm) kl 01:30 Pain Scale: Adult mt4 03:45 Pain Scale: Adult bm8 Rudolph Coma Score: 01:30 Eye Response: spontaneous(4). Motor Response: obeys commands(6). Verbal Response: mt4 oriented(5). Total: 15. 03:45 Eye Response: spontaneous(4). Motor Response: obeys commands(6). Verbal Response: bm8 oriented(5). Total: 15. MDM: 00:30 Medical Screening Exam initiated kb 00:56 Data reviewed: vital signs, nurses notes. Transition of care: After a detail discussion kb of the patient's case, care is transferred to Reynaldo Baron MD. 09/13 00:37 Order name: Strep kb 09/13 00:37 Order name: Brooks Screen Profile; Complete Time: 02:58 kb 09/13 00:37 Order name: CBC with Diff; Complete Time: 02:58 kb 09/13 00:37 Order name: Basic Metabolic Panel; Complete Time: 02:58 kb 09/13 01:54 Order name: Throat Culture EDMS 09/13 00:42 Order name: CT Soft Tissue Neck W/contr; Complete Time: 02:58 kb 09/13 00:37 Order name: IV Start; Complete Time: 01:30 kb Administered Medications: 01:29 Drug: Ondansetron IVP 4 mg IVP once; over 2 minutes Route: IVP; Site: right antecubital;mt4 01:50 Follow up: Response: No adverse reaction mt4 01:29 Drug: NS 0.9% IV 1000 ml IV at 1000 ml once; to be given as a bolus over 60 minutes mt4 Route: IV; Rate: 1000 ml; Site: right antecubital; 01:50 Follow up: Response: No adverse reaction mt4 02:37 Follow up: IV Status: Infusion continued; IV Intake: 1000ml mt4 01:30 Drug: Decadron - Dexamethasone IVP 10 mg IVP once Route: IVP; Site: right antecubital; mt4 01:50 Follow up: Response: No adverse reaction mt4 01:30 Drug: fentaNYL (PF) IVP 25 mcg IVP once Route: IVP; Site: right antecubital; mt4 01:50 Follow up: Response: No adverse reaction mt4 Disposition: 03:36 I reviewed the patient's care provided by Advanced Practice Provider \T\ agree w/ the bo1 diagnosis \T\ care plan. I personally saw the pt \T\ performed a substantive portion of the visit, incldng all aspects of the (History/Exam/Medical Decision Making). Final disposition and plan done by me. 03:50 Pt has been examined, patent airway noted. Some peritonsilar swelling on the right vs bo1 the left. No crossing of the midline and uvula is midline. I have reviewed the lab and imaging result and discussed options with the pt and spouse. I have discussed and consulted with Dr Eren CARCAMO (ENT) and she states to have the pt be seen at the office in the AM \T\ 9am. Information given to the pt. Pt agrees.. Disposition Summary: 09/13/24 03:34 Discharge Ordered Notes: Location: Home bo1 Problem: new bo1 Symptoms: are unchanged bo1 Condition: Stable bo1 Diagnosis - Peritonsillar abscess bo1 Followup: bo1 - With: Blank Jason MD - When: Today - Reason: Continuance of care, Appt at 9am, please go to the ENT's office - 09/13/2024 Discharge Instructions: - Discharge Summary Sheet bo1 - Peritonsillar Abscess, [id number] bo1 Forms: - Medication Reconciliation Form bo1 - Antibiotic Education bo1 - Prescription Opioid Use bo1 - Patient Portal Instructions bo1 - Leadership Thank You Letter bo1 Signatures: Dispatcher [employer] EDMS Lauren Dyson, CRIMINAL LAWYER-C CRIMINAL LAWYER-Georgina Jose, RN RN kl OeiReynaldo MD MD bo1 Idalia Pedroza RN RN mt4 Corrections: (The following items were deleted from the chart) 00:37 00:37 Group A Streptococcus Rapid Sc+BA.LAB.BRZ ordered. EDMS EDMS 00:37 00:37 MONO SCREEN PROFILE+I.LAB.BRZ ordered. EDMS EDMS 00:37 00:37 CBC+H.LAB.BRZ ordered. EDMS EDMS 00:37 00:37 BASIC METABOLIC PANEL+C.LAB.BRZ ordered. EDMS EDMS
[2024-09-13 03:59] VITALS: TEMP 98.7
[2024-09-13 04:16] VITALS: BP 118/74; O2SAT 97
== END 2024-09-13 03:48 | disposition home or self-care (01) ==
LOC: ER 23:54
DX: J36 Peritonsillar abscess (principal)
CPT/HCPCS: 96361; 87070; 85025; 80048; 36415; 86308; 87081; 70491; 96375; 96374; 99284; Q9967; J3010; J1100; J2405; J7030